=== PATIENT | female | born 1990 | race Hispanic/Latino ===

== ENCOUNTER 2025-04-02 15:59 | Inpatient (IN) | payer OTHER ==
[~2025-04-02] VITALS: Ht 149.9 cm; Wt 92.1 kg
[2025-04-08] MEDS ORDERED: LACTATED RINGER'S 1,000 ML IV PRN (06:15)
[2025-04-08] MEDS ORDERED: OXYTOCIN/0.9 % SODIUM CHLORIDE 30 UNITS/500 ML BAG IV SCH (06:15)
[2025-04-08] MEDS ORDERED: LACTATED RINGER'S 1,000 ML IV SCH (06:15)
[2025-04-08] MEDS ORDERED: TERBUTALINE SULFATE 1 MG/ML AMP SUB-Q PRN (06:15)
[2025-04-08] MEDS ORDERED: CALCIUM CARBONATE 500 MG CHEW PO PRN (06:15)
[2025-04-08] MEDS ORDERED: LIDOCAINE HCL 1% 30 ML SDV INJ PRN (06:15)
[2025-04-08] MEDS ORDERED: MAGNESIUM HYDROXIDE/AL HYDROX 30 ML CUP PO PRN (06:15)
[2025-04-08] MEDS ORDERED: OXYTOCIN/0.9 % SODIUM CHLORIDE 500 ML IV SCH ×2 (06:30→07:00)
[2025-04-08 06:59] LABS: MCH 21.4 PG (25.6-32.2); MCHC 30.4 g/dL (32.2-35.5); MCV 70.4 fL (79.4-94.8); RBC 4.53 M/uL (3.93-5.22)
[2025-04-08 07:25] VITALS: BP 125/78
[2025-04-08 07:27] LABS: ABO O
[2025-04-08 07:28] LABS: ANTIBODY SCREEN NEGATIVE; IS CROSSMATCH COMPATIBLE; RH POSITIVE
[2025-04-08 08:48] LABS: BARBITURATES, UR NEGATIVE (NEGATIVE); BENZODIAZEPINES, UR NEGATIVE (NEGATIVE); BUPRENORPHINE,UR NEGATIVE (NEGATIVE); COCAINE, UR NEGATIVE (NEGATIVE); MARIJUANA (THC), UR NEGATIVE (NEGATIVE); MDMA, UR NEGATIVE (NEGATIVE); METHADONE, UR NEGATIVE (NEGATIVE); METHAMPHETAMINE, UR NEGATIVE (NEGATIVE); OPIATES, UR NEGATIVE (NEGATIVE); TRICYCLIC ANTIDEPRESSANT, UR NEGATIVE (NEGATIVE)
[2025-04-08] MEDS ORDERED: fentaNYL citrate 100 MCG/2 ML VIAL ONE (17:33)
[2025-04-08] MEDS ORDERED: ePHEDrine sulfate 5 MG/ML SYRINGE IV PRN (17:45)
[2025-04-08] MEDS ORDERED: LACTATED RINGER'S 2,000 ML IV ONE (17:45)
[2025-04-08] MEDS ORDERED: LACTATED RINGER'S 500 ML IV PRN (17:45)
[2025-04-08] MEDS ORDERED: ROPIVACAINE 0.2% 200 ML BAG EPIDURAL SCH (17:45)
--- NOTE | 2025-04-08 18:35 | PR ---
[facility] [address] [place], [place] [address] Signed Progress Notes IP Datetime Report Generated by CPN: 04/08/2025 18:35 PROGRESS NOTES: [id number] Impression: Normal Progression of Labor Procedures: Artificial ROM Plan: Continue Present Management VITAL SIGNS: [id number] Vital Signs: Reviewed; Within Normal Limits EXAM: [id number] Dilatation: 4.0 Effacement: 70 Effacement: 50 Station: -2 Station: -3 Contractions: every 2-4 minutes MEMBRANES: [id number] Membranes Status: Ruptured Comments: Pt comfortable with epidural in place. AROM moderate amount of clear fluid returned. FHR variable and late decelerations noted. Pitocin was at 8mlu, it was discontinued and pt was repositioned to her left then right side. Decelerations have improved. Will restart pitocin if needed and once FHR has recovered fully. FETUS A: [id number] FHR Baseline: 150 Variability: Moderate 6-25bpm Accelerations: 15X15 Decelerations: Late FHR Category: Category II Presentation: Vertex FETUS B: [id number] Signing Physician: Harika Akbar CNM Copies: ~ *Electronically Signed* 04/08/25 1835 HARIKA AKBAR CNM PATIENT NAME: CATHERINE DOUGLASS PROGRESS NOTE DATE OF : 86 PHYSICIAN: HARIKA AKBAR CNM RPT #: [id number] REPORT IS CONFIDENTIAL AND NOT TO BE RELEASED WITHOUT AUTHORIZATION
--- NOTE | 2025-04-08 22:55 | PR ---
[facility] [address] [facility] [place], [place] [address] Signed Progress Notes IP Datetime Report Generated by CPN: 04/08/2025 22:55 Other Impressions: Cat II FHR tracing Procedures: Sterile Vag Exam Other Plans: Pitocin discontinued Dilatation: 4.0 Effacement: 70 Station: -1 Contractions: every 5 min Membranes Status: Ruptured Comments: Pt comfortable with epidural in place. Pitocin was at 8mlu but had to be decreased then discontinued due to non repetitive late and variable decelerations. Pt repositioned and decelerations improved. Variability remains moderate. Cvx 4/80/-2. No umbilical cord palpated with exam. IUPC placed. Will monitor for now and restart pitocin as FHR allows. Variability: Moderate 6-25bpm Decelerations: Late; Variable FHR Category: Category II Signing Physician: Harika Akbar CNM Copies: ~ *Electronically Signed* 04/08/25 6126 HARIKA AKBAR CNM PATIENT NAME: CATHERINE DOUGLASS PROGRESS NOTE DATE OF : 86 PHYSICIAN: HARIKA AKBAR CNM RPT #: [id number] REPORT IS CONFIDENTIAL AND NOT TO BE RELEASED WITHOUT AUTHORIZATION
[2025-04-09] MEDS ORDERED: ePHEDrine KIT FOR FBC IV ONE (00:13)
--- NOTE | 2025-04-09 02:57 | PR ---
[facility] [address] [facility] [place], [place] [address] Signed Progress Notes IP Datetime Report Generated by CPN: 04/09/2025 02:57 Impression: Reassuring Heart Rate Dilatation: 4.0 Contractions: every 3-4 min Membranes Status: Ruptured Comments: Pitocin at 4mlu. Pt repositioned to left side when FHR spontaneously deceled to 60s x 1min 40sec. Pt repositioned to other side and FHR recovered. Cvx unchanged. Pitocin discontinued. FHR now 140 with moderate variability and acceleration. Pitocin to remain off x 30 min and will restart low dose as long as FHR tolerates. Variability: Moderate 6-25bpm Decelerations: Variable FHR Category: Category II Signing Physician: Harika Akbar CNM Copies: ~ *Electronically Signed* 04/09/25 0257 HARIKA AKBAR CNM PATIENT NAME: CATHERINE DOUGLASS PROGRESS NOTE DATE OF : 86 PHYSICIAN: HARIKA AKBAR CNM RPT #: [id number] REPORT IS CONFIDENTIAL AND NOT TO BE RELEASED WITHOUT AUTHORIZATION
[2025-04-09] MEDS ORDERED: TRANEXAMIC ACID IN NACL,ISO-OS 0 ML IV ONE (09:30)
[2025-04-09] MEDS ORDERED: HYDROCORTISONE ACETATE 25 MG SUPP PR PRN (12:15)
[2025-04-09] MEDS ORDERED: WITCH HAZEL/GLYCERIN 1 EA PAD TOP PRN (12:15)
[2025-04-09] MEDS ORDERED: LIDOCAINE 2% VISCOUS 6 ML SYR TOP ONE ×2 (12:15)
[2025-04-09] MEDS ORDERED: OXYTOCIN/0.9 % SODIUM CHLORIDE 500 ML IV SCH (12:15)
[2025-04-09] MEDS ORDERED: ACETAMINOPHEN 325 MG TAB PO PRN (12:15)
[2025-04-09] MEDS ORDERED: IBUPROFEN 600 MG TAB PO PRN (12:15)
[2025-04-09] MEDS ORDERED: MAGNESIUM HYDROXIDE/AL HYDROX 30 ML CUP PO PRN (12:15)
[2025-04-09] MEDS ORDERED: BENZOCAINE 60 ML AEROSOL TOP PRN (12:15)
[2025-04-09] MEDS ORDERED: MAGNESIUM HYDROXIDE 30 ML UDC PO PRN (12:15)
[2025-04-09] MEDS ORDERED: CALCIUM CARBONATE 500 MG CHEW PO PRN (12:15)
[2025-04-09] MEDS ORDERED: SENNOSIDES/DOCUSATE 1 EA TAB PO SCH (21:00)
[2025-04-10] MEDS ORDERED: MEASLES,MUMPS&RUBELLA VACCINE 1 VIAL VIAL SUB-Q ONE (08:15)
--- NOTE | 2025-04-10 12:18 | PR ---
[facility] [address] [facility] [place], [place] [address] Signed PP Progress Notes Datetime Report Generated by CPN: 04/10/2025 12:18 SUBJECTIVE: [id number] Pain: Within Normal Limits Nausea/Vomiting: Denies Flatus: Yes Vital Signs: [id number] Cardiovascular: Not Done Respiratory: Normal Abdomen/Uterus: Normal Lochia: Normal Vulva/Perineum: Normal Breasts: Normal CVA Tenderness: Not Done Extremities: Normal Incision: Not Applicable Progress: Normal IMPRESSION/PLAN/PROCEDURES: [id number] Impression: Normal Progression Plan: Discharge Procedures: None Progress Notes: Doing well. BF without difficulty. Lochia is light. No fever/chills. Some perineal soreness. Desires discharge home today. Signing Physician: Harika Akbar CNM Copies: ~ *Electronically Signed* 04/10/25 1218 HARIKA AKBAR CNM PATIENT NAME: CATHERINE DOUGLASS PROGRESS NOTE DATE OF : 86 PHYSICIAN: HARIKA AKBAR CNM RPT #: [id number] REPORT IS CONFIDENTIAL AND NOT TO BE RELEASED WITHOUT AUTHORIZATION
== END 2025-04-10 14:00 | disposition home or self-care (01) | DRG 807 ==
LOC: FBC 15:59
PROVIDERS: ADMIT Advanced Practice Midwife; ATTEND Advanced Practice Midwife
PROC: 10907ZC Drainage of Amniotic Fluid, Therapeutic from Products of Conception, Via Natural or Artificial Opening (ICD-10-PCS; 2025-04-08)
PROC: 3E033VJ Introduction of Other Hormone into Peripheral Vein, Percutaneous Approach (ICD-10-PCS; 2025-04-08)
PROC: 4A1HXCZ Monitoring of Products of Conception, Cardiac Rate, External Approach (ICD-10-PCS; 2025-04-08)
PROC: BY4FZZZ Ultrasonography of Third Trimester, Single Fetus (ICD-10-PCS; 2025-04-08)
PROC: 00HU33Z Insertion of Infusion Device into Spinal Canal, Percutaneous Approach (ICD-10-PCS; 2025-04-08)
PROC: 3E0R3BZ Introduction of Anesthetic Agent into Spinal Canal, Percutaneous Approach (ICD-10-PCS; 2025-04-08)
PROC: 10H07YZ Insertion of Other Device into Products of Conception, Via Natural or Artificial Opening (ICD-10-PCS; 2025-04-08)
PROC: 10E0XZZ Delivery of Products of Conception, External Approach (ICD-10-PCS; principal; 2025-04-09)
PROC: 3E0234Z Introduction of Serum, Toxoid and Vaccine into Muscle, Percutaneous Approach (ICD-10-PCS; 2025-04-10)
DX: O48.0 Post-term pregnancy (principal); Z37.0 Single live birth; O76 Abnormality in fetal heart rate and rhythm complicating labor and delivery; O77.0 Labor and delivery complicated by meconium in amniotic fluid; Z3A.40 40 weeks gestation of pregnancy; O99.02 Anemia complicating childbirth; D50.9 Iron deficiency anemia, unspecified; Z79.82 Long term (current) use of aspirin; Z23 Encounter for immunization
CPT/HCPCS: 01960; 36415; 80307; 85027; 85060; 86850; 86900; 86901; 86922; 90707; A9270; J2405; J7121